=== PATIENT | female | born 1935 | race Caucasian/White ===

== ENCOUNTER 2018-05-30 08:20 | Day surgery (SDC) | payer OTHER ==
[2018-05-28 12:16] LABS: Absolute Lymphocytes (CBC) 1.5 K/uL (0.7-4.9); Absolute Monocytes 0.5 K/uL (0.1-1.3); Absolute Neutrophil 3.4 K/uL (1.8-8.0); Basophils % 1.3 % (0-1.3); Eosinophils % 1.3 % (0-4.4); Lymphocytes % 27.3 % (15.3-44.8); MPV 7.6 fL (7.6-11.3); Monocytes % 9.1 % (3.3-12.3); RBC Red Blood Cell Count 4.48 M/uL (3.86-4.86)
--- NOTE | 2018-05-28 12:30 | RAD REPORT ---
EXAM DESCRIPTION: RAD - Chest Pa And Lat (2 Views) - 05/28/2018 12:23 pm CLINICAL HISTORY: preop Chest pain. COMPARISON: CHEST PA AND LAT 2 VIEW dated 04/22/2008; CHEST PA AND LAT 2 VIEW dated 02/20/2006 FINDINGS: The lungs are clear. The heart is mildly enlarged in size. No displaced fractures.
[2018-05-28 12:39] LABS: Potassium 4.1 mmol/L (3.5-5.1)
[2018-05-28 13:16] LABS: Bilirubin Direct 0.1 mg/dL (0-0.2); Bilirubin Total 0.4 mg/dL (0.2-1.0); Protein, Total 7.7 g/dL (6.4-8.2)
--- NOTE | 2018-05-28 14:00 | EKG ---
Test Date: 2018-05-28 Test Time: 11:38:53 Train Announcer: KIRA MEASUREMENT RESULTS: Intervals: Rate: 66 IL: 164 QRSD: 80 QT: 368 QTc: 385 [place]: P: 29 IL: 164 QRS: 56 T: 60 INTERPRETIVE STATEMENTS: Normal sinus rhythm ST abnormality, possible digitalis effect Abnormal ECG Compared to ECG 02/14/1998 11:01:00 No significant changes Electronically Signed On 05-28-18 14:00:03 EDUCATIONAL PROGRAMMING DIRECTOR by Maxim Leon
--- OUTSIDE RECORDS SUMMARY | 2018-05-30 08:24 | XMS REPORT | Clinical Summary ---
:1935 Author Organization [facility] Address [address] [place] [address] Care Team Providers Name Role Phone Asked, No Pcp Primary Care Provider Unavailable Allergies No Known Allergies Medications Medication Sig Dispensed Refills Start Date End Date Status pregabalin (LYRICA) 50 Take 50 mg by 0 Active MG capsule mouth 3 (three) times a day. levothyroxine Take 50 mcg by 0 Active (SYNTHROID, LEVOTHROID) mouth every 50 MCG tablet morning. Ca carb-D3-mag Take by mouth. 0 Active bd-bjw-cqmy-Zn (CALTRATE + D3 PLUS MINERALS) 300 mg-800 unit -25 mg-0.5 mg tablet melatonin 10 mg capsule Take by mouth. 0 Active aspirin (ECOTRIN) 81 MG Take 81 mg by 0 Active enteric coated tablet mouth daily. sodium citrate-citric Take 30 mL by 0 Active acid (BICITRA) 500-334 mouth once. mg/5 mL solution biotin 10,000 mcg Take by mouth. 0 Active capsule docusate sodium Take 100 mg by 0 Active (COLACE) 100 MG capsule mouth 2 (two) times a day. cranberry conc-ascorbic Take by mouth. 0 Active acid 4,200-20 mg capsule hydrocortisone Insert into 30 g 0 06/25/2017 07/25/2017 (PROCTOZONE-HC) 2.5 % the rectum 2 rectal cream (two) times a day for 30 days. Active Problems No known active problems Encounters Date Type Specialty Care Team Description 06/25/2017 Orders Only General Surgery Diandra Delgadillo MA after 05/29/2017 Family History Medical History Relation Name Comments Arthritis Mother Hypertension Mother Relation Name Status Comments Mother Social History Tobacco Use Types Packs/Day Years Used Date Never Smoker Alcohol Use Drinks/Week oz/Week Comments No Sex Assigned at Date Recorded Not on file Job Start Date Occupation Industry Not on file Not on file Not on file Travel History Travel Start Travel End No recent travel history available. Last Filed Vital Signs Not on file Plan of Treatment Health Maintenance Due Date Last Done Comments SHINGLES VACCINES (1 of 2) 1983 PNEUMOCOCCAL POLYSACCHARIDE VACCINE AGE 65 AND OVER 1998 PNEUMOCOCCAL-13 1998 INFLUENZA VACCINE 12/11/2017 Results Not on fileafter 05/29/2017 Insurance Payer Benefit Plan / Group Subscriber ID Type Phone Address MEDICARE MEDICARE PART A AND B xxxxxxxxxx Medicare [place], [place] AET[employer] A[employer] PPO OPEN CHOICE xxxxxxxxx PPO Advance Directives Patient has advance care planning documents on file. For more information, please contact:Silvano Adams[address] [place] [address]
[2018-05-30] MEDS ORDERED: Ringers Lactate 1,000 ML IV ONE ×2 (08:44→13:16)
[2018-05-30] MEDS ORDERED: CEFOXITIN/SWI 1gm 1 GM/10 ML SYR ONE (09:06)
[2018-05-30] MEDS ORDERED: FENTANYL CITR 100 MCG/2 ML ONE (11:59)
[2018-05-30] MEDS ORDERED: PROPOFOL 200 MG/20 ML VIAL IV ONE (11:59)
[2018-05-30] MEDS ORDERED: ONDANSETRON 4 MG/2 ML VIAL ONE (12:00)
[2018-05-30] MEDS ORDERED: LIDOCAINE 2% MPF 5 ML VIAL ONE (12:00)
[2018-05-30] MEDS ORDERED: MIDAZOLAM HCL 2 MG/2 ML INJ ONE (12:00)
[2018-05-30] MEDS ORDERED: ROCURONIUM 50 MG/5 ML VIAL IV ONE (12:01)
[2018-05-30] MEDS ORDERED: BUPIVACAINE 0.5% PF 10 ML VIAL ONE (12:12)
[2018-05-30] MEDS ORDERED: GLYCOPYRROLATE 0.2 MG/ML SYR ONE (12:34)
[2018-05-30] MEDS ORDERED: NEOSTIGMINE 1 MG/ML -5 ML SYRINGE ONE (12:45)
[2018-05-30] MEDS: MEPERIDINE HCL 25 MG/0.5 ML ONE ×4 (13:31→14:11)
[2018-05-30] MEDS ORDERED: PROMETHAZINE 25 MG/ML VIAL ONE (13:57)
[2018-05-30] MEDS ORDERED: HYDROMORPHONE HCL 1 MG/ML INJ ONE (14:28)
[2018-05-30] MEDS ORDERED: HYDROCODONE/APAP 7.5/325 MG TAB ONE (15:21)
--- NOTE | 2018-05-31 00:02 | OP ---
Date of Procedure: 05/30/2018 Surgeon: Francisco An MD [employer] Analyst: SOWMYA [place]. Preoperative Diagnosis: Symptomatic cholelithiasis. Postoperative Diagnosis: Symptomatic cholelithiasis. Procedure: Laparoscopic cholecystectomy. Estimated Blood Loss: Minimal. Specimen: Gallbladder. Findings: As above. Anesthesia: General. Complications: None. Disposition: The patient tolerated the procedure in stable condition and was taken to Recovery in go od general condition. Procedure In Detail: The patient was brought to the OR and placed in supine position. General anest hesia was begun. The patient was prepped and draped in the usual sterile fashion. Marcaine 0.5% was infiltrated locally. A #15 blade was used to make a 1-cm infraumbilical midline incision. Subcutan eous tissues were divided. Fascia and plane were divided. A #1 Vicryl stay suture was placed. Karen toneal cavity was entered with sharp and blunt dissection. A 12-mm trocar was placed into the perito kira cavity under direct vision. Pneumoperitoneum was established. Then, three 5-mm trocars were pl aced; one in the epigastrium just to the right of midline and two in the right subcostal region. Lap aroscopy revealed some adhesions to the body of the gallbladder. Fundus was retracted superiorly. A dhesions were taken down with sharp and blunt dissection. Infundibulum was identified and retracted inferolaterally. Cystic duct and cystic artery were clearly identified with blunt dissection. Clips were placed. Both structures were divided. Cautery was used to remove the gallbladder from the vianney er bed. Bleeding from the liver bed was controlled with cautery. The gallbladder was retrieved thro ugh the umbilicus via an EndoCatch bag. Right upper quadrant was irrigated. Effluent was clear. No evidence of bleeding or bile leakage was appreciated. Subsequently, all trocars were removed under direct visualization. Stay sutures were tied to each other to reapproximate the fascial defect. Sub cutaneous wounds were irrigated. Bleeding was controlled with cautery. A 3-0 chromic used to approx imate subcutaneous tissue and close the skin. Sterile dressing was applied. The patient was awakene d and taken to Recovery in good general condition. Discharge Note: The patient will go to day surgery and home when stable. Disposition: Home. Condition: Stable. Discharge Instructions: Resume home medications and diet. Activity as tolerated. No heavy lifting. Remove outer dressing in 2 days. Shower. Keep wound clean and dry. Keep Steri-Strips on at all t imes. Follow up in my office in 1 week. Call for appointment. Tylenol No. 3 one tablet p.o. q.4 luis alberto de la cruz pain. CHRISTOPHER/ABENA Voice ID: [id number] Report ID: [id number]
== END 2018-05-30 16:30 | disposition home or self-care (01) ==
LOC: OR 08:20
PROVIDERS: ATTEND Surgery
PROC: 0FT44ZZ Resection of Gallbladder, Percutaneous Endoscopic Approach (ICD-10-PCS; principal; 2018-05-30 10:15)
DX: K80.10 Calculus of gallbladder with chronic cholecystitis without obstruction (principal); M79.7 Fibromyalgia; E07.9 Disorder of thyroid, unspecified; M19.90 Unspecified osteoarthritis, unspecified site; Z82.49 Family history of ischemic heart disease and other diseases of the circulatory system
CPT/HCPCS: 36415; 47562; 71046; 80048; 80076; 82150; 85025; 88304; 93005; J1170; J2175 ×2; J2405; J2550; J2704; J2710; J3010; J2250